=== PATIENT | male | born 1955 | race Caucasian/White ===

== ENCOUNTER 2017-04-15 21:48 | Inpatient (IN) | payer MEDICARE ==
[2017-04-16] MEDS ORDERED: CLINDAMYCIN 600MG PREMIX IVPB 50 ML IVPB ONE ×2 (00:28→00:52)
[2017-04-16] MEDS ORDERED: LEVOFLOXACIN 750 MG IVPB 150 ML IVPB ONE ×2 (00:28→00:52)
[2017-04-16] MEDS ORDERED: DIPHTH,PERTUSS(ACELL),TET 0.5 ML DISP.SYRIN IM ONE (00:29)
--- NOTE | 2017-04-16 00:29 | PDOC ---
History of Present Illness - General Chief Complaint: Injury Stated Complaint: LACERATION Time Seen by Provider: 04/15/17 23:39 - History of Present Illness Initial Comments: 04/16/17 00:27 CHIEF COMPLAINT: laceration/foreign body to R ft HISTORY OF PRESENT ILLNESS: 62 yo M with hx of IDDM and HTN presents to ED s/p laceration/foreign body to foot. Patient reports he stepped on a broken piece of glass that went through his shoe today. He was seen at [facility] and sent to ER for foreign body to base of 1st phalanx and possible avulsion fracture requiring IV abx. No recent travel or sick contacts. PAST MEDICAL HISTORY: Denies past medical history FAMILY HISTORY: Denies SOCIAL HISTORY: Current smoker. Denies alcohol, illicit drug use. SURGICAL HISTORY: Denies ALLERGIES: No known drug allergies REVIEW OF SYSTEMS General/Constitutional: Denies fever or chills. Denies weakness, weight change. HEENT: Denies change in vision. Denies ear pain or discharge. Denies sore throat. Cardiovascular: Denies chest pain or shortness of breath. Respiratory: Denies cough, wheezing, or hemoptysis. Gastrointestinal: Denies nausea, vomiting, diarrhea or constipation. Denies rectal bleeding. Genitourinary: Denies dysuria, frequency, or change in urination. Musculoskeletal: Laceration and pain to R foot. Denies neck or back pain. Skin and breasts: Denies rash or easy bruising. Neurologic: Denies headache, vertigo, loss of consciousness, or loss of sensation. PHYSICAL EXAM General Appearance: Well-appearing, appropriately dressed. No apparent distress. HEENT: EOMI, PERRLA, normal ENT inspection, normal voice, TMs normal, pharynx normal. No conjunctival pallor. No photophobia, scleral icterus. Neck: Supple. Trachea midline. No tenderness, rigidity, carotid bruit, stridor , lymphadenopathy, or thyromegaly. Respiratory/Chest: Lungs CTAB. No shortness of breath, chest tenderness, respiratory distress, accessory muscle use. No crackles, rales, rhonchi, stridor , wheezing, dullness Cardiovascular: RRR. S1, S2. No JVD, murmur, bradycardia, tachycardia. Vascular Pulses: Dorsalis-Pedis (R): 2+, Dorsalis-Pedis (L): 2+ Gastrointestinal/Abdominal: Normal bowel sounds. Abdomen soft, non-distended. No tenderness or rebound tenderness. No organomegaly, pulsatile mass, guarding , hernia, hepatomegaly, splenomegaly. Lymphatic: No adenopathy, tenderness. Musculoskeletal/Extremities: Laceration to plantar aspect of R foot. Foreign body palpated. FROM of all extremities, normal capillary refill. Pelvis Stable. No CVA tenderness. No tenderness to extremities, pedal edema, swelling , erythema or deformity. Integumentary: Appropriate color, dry, warm. No cyanosis, erythema, jaundice or rash Neurologic: software technician II-XII intact. Fully oriented, alert. Appropriate mood/affect. Motor strength 5/5. No appreciable EOM palsy, facial droop or sensory deficit. Past History - Past Medical History Allergies/Adverse Reactions: Allergies Allergy/AdvReac Type Severity Reaction Status Date / Time No Known Allergies Allergy Verified 04/15/17 21:49 Home Medications: Ambulatory Orders Insulin Lispro [Humalog] See Protocol SQ DAILY 04/16/17 Losartan Potassium [Cozaar -] 50 mg PO DAILY 04/16/17 Sitagliptin Phosphate [Januvia] 50 mg PO DAILY 04/16/17 Diabetes: Yes HTN: Yes - Immunization History Immunization Up to Date: No - Psycho/Social/Smoking Cessation Hx Suicidal Ideation: No Smoking History: Current every day smoker Number of Cigarettes Smoked Daily: 10 Information on smoking cessation initiated: No *Physical Exam - Vital Signs Last Vital Signs Temp Pulse Resp BP Pulse Ox 98 F 96 H 18 176/90 96 04/15/17 21:49 04/15/17 21:49 04/15/17 21:49 04/15/17 21:49 04/15/17 21:49 ED Treatment Course - LABORATORY CBC & Chemistry Diagram: 04/16/17 03:25 04/16/17 03:25 - RADIOLOGY Radiology Studies Ordered: Category Date Time Status FOOT-RIGHT [RAD] Stat Radiology 04/16/17 00:26 Ordered Medical Decision Making - Medical Decision Making 04/16/17 03:15 62 yo M with hx of IDDM and HTN presents to ED s/p laceration/foreign body to foot. -levaquin, clindaycin IVPB -X-ray positive for foreign object to base of 1st phalanx with contact to bone. Case discussed with podiatry MD Holman, who recommends patient to be admitted for surgical intervention tomorrow. He will evaluate patient in am. -pre-op labs ordered -patient NPO in am Laboratory Tests 04/16/17 03:25 Creatinine 2.1 H Random Glucose 394 H* 04/16/17 06:31 -IVF -3 units regular insulin SQ Case discussed with attending hospitalist MD Love, who accepts patient for inpatient admission. *DC/Admit/Observation/Transfer Diagnosis at time of Disposition: Foreign bdy foot/toe-inf - Discharge Dispostion Admit: Yes - Referrals Referrals: Shanti Pitt [Primary Care Provider] -
--- NOTE | 2017-04-16 00:31 | PDOC ---
*Physical Exam - Vital Signs Last Vital Signs Temp Pulse Resp BP Pulse Ox 98 F 96 H 18 176/90 96 04/15/17 21:49 04/15/17 21:49 04/15/17 21:49 04/15/17 21:49 04/15/17 21:49 ED Treatment Course - LABORATORY CBC & Chemistry Diagram: 04/18/17 06:30 04/18/17 06:30 Medical Decision Making - Medical Decision Making 04/16/17 00:31 agree with care from JESSE Hicks *DC/Admit/Observation/Transfer Diagnosis at time of Disposition: Foreign bdy foot/toe-inf - Discharge Dispostion Disposition: HOME Condition at time of disposition: Stable - Prescriptions
[2017-04-16 03:32] LABS: BASOPHIL 0.8 % (0-2.0); EOSINOPHIL 4.8 % (0-4.5); MCH 29.7 pg (25.7-33.7); MCHC 33.8 g/dl (32.0-35.9); MEAN CELL VOLUME 87.9 fl (80-96); MEAN PLT VOLUME 7.6 fl (7.5-11.1); NEUTROPHILS 51.4 % (42.8-82.8); PLATELET COUNT 203 K/MM3 (134-434); RDW 13.5 % (11.9-15.9); WHITE BLOOD COUNT 5.9 K/mm3 (4.0-10.0)
[2017-04-16 04:03] LABS: ALBUMIN 3.6 g/dl (3.4-5.0); ANION GAP 9 (8-16); BILIRUBIN,TOTAL 0.2 mg/dL (0.2-1.0); CALCIUM 8.4 mg/dL (8.5-10.1); CO2 24 mmol/L (21-32); CREATININE 2.1 mg/dL (0.7-1.3); SGOT/AST 16 U/L (15-37); SGPT/ALT 26 U/L (12-78); TOT PROT 6.9 g/dl (6.4-8.2)
[2017-04-16 04:04] LABS: ALK PHOS 179 U/L (45-117)
[2017-04-16 04:09] LABS: GLUCOSE,RANDOM 394 mg/dL (74-106)
[2017-04-16] MEDS ORDERED: INSULIN REGULAR HUMAN 100 UNITS/ML *VIAL SQ ONE (05:43)
[2017-04-16] MEDS ORDERED: SODIUM CHLORIDE 0.9% 1000 ML INFUS.BAG IV ONE (05:49)
[2017-04-16] MEDS ORDERED: INSULIN REGULAR HUMAN 100 UNITS/ML *VIAL ONE (05:52)
[2017-04-16] MEDS ORDERED: INSULIN SLIDING SCALE (NOVOLOG) 1 VIAL SQ SCH (07:00)
--- NOTE | 2017-04-16 08:32 | HP ---
CHIEF COMPLAINT: I hurt my foot PCP: Shanti Pitt MD HISTORY OF PRESENT ILLNESS: 62 yo M with h/o IDDM presented to the ED with open wound on the bottom of his R foot. Patient stepped on broken glass bottle while walking back home yesterday. The glass penetrated his shoe and went right into the base of his R great toe. He didn't feel any pain after he went home but his urged him to go to an urgent care center. Patient [facility] and was subsequently told to come in to the ED. Denies severe radiating pain or bleeding , dizziness, R leg focal weakness, fever or chills. ER course was notable for: (1) Received tetanus shot, levaquin, clindamycin, IVF x 2 L (2) Blood glc 394, received 3 regular insulin, 8 novolog (3) Foot x-ray shows foreign body with tissue swelling Recent Travel: Denies PAST MEDICAL HISTORY: CKD, Prostate CA s/p prostatectomy, HTN and IDDM PAST SURGICAL HISTORY: Prostatectomy Social History: Smoking: Current active smoker Alcohol: Denies Drugs: Denies Family History: Non-contributory Allergies No Known Allergies Allergy (Verified 04/15/17 21:49) HOME MEDICATIONS: Home Medications Medication Instructions Recorded Insulin Lispro [Humalog] See Protocol SQ DAILY 04/16/17 Losartan Potassium [Cozaar -] 50 mg PO DAILY 04/16/17 Sitagliptin Phosphate [Januvia] 50 mg PO DAILY 04/16/17 REVIEW OF SYSTEMS CONSTITUTIONAL: Absent: fever, chills, diaphoresis, generalized weakness, malaise, loss of appetite, weight change HEENT: Absent: rhinorrhea, nasal congestion, throat pain, throat swelling, difficulty swallowing, mouth swelling, ear pain, eye pain, visual changes CARDIOVASCULAR: Absent: chest pain, syncope, palpitations, irregular heart rate, lightheadedness , peripheral edema RESPIRATORY: Absent: cough, shortness of breath, dyspnea with exertion, orthopnea, wheezing, stridor, hemoptysis GASTROINTESTINAL: Absent: abdominal pain, abdominal distension, nausea, vomiting, diarrhea, constipation, melena, hematochezia GENITOURINARY: Absent: dysuria, frequency, urgency, hesitancy, hematuria, flank pain, genital pain MUSCULOSKELETAL: Absent: myalgia, arthralgia, joint swelling, back pain, neck pain SKIN: Absent: rash, itching, pallor HEMATOLOGIC/IMMUNOLOGIC: Absent: easy bleeding, easy bruising, lymphadenopathy, frequent infections ENDOCRINE: Absent: unexplained weight gain, unexplained weight loss, heat intolerance, cold intolerance NEUROLOGIC: Absent: headache, focal weakness or paresthesias, dizziness, unsteady gait, seizure, mental status changes, bladder or bowel incontinence PSYCHIATRIC: Absent: anxiety, depression, suicidal or homicidal ideation, hallucinations. PHYSICAL EXAMINATION Last Vital Signs Temp Pulse Resp BP Pulse Ox 98.2 F 75 16 142/82 99 04/16/17 05:58 04/16/17 05:58 04/16/17 05:58 04/16/17 05:58 04/16/17 05:58 GENERAL: AAO x 3, in no acute distress. HEAD: NC, AT EYES: PERRLA, sclera anicteric, conjunctiva clear. No lid lag. EARS, NOSE, THROAT: Poor oral hygiene, oropharynx clear without exudates. Moist mucous membranes. NECK: supple without lymphadenopathy LUNGS: CTAB HEART: RRR, normal S1 and S2 without murmur, rub or gallop. ABDOMEN: Soft, nontender, not distended, normoactive bowel sounds, no guarding, no rebound, no masses. Surgical scars EXTREMITIES: Diminished peripheral pulses bilaterally. No peripheral edema. ~3 cm laceration with purulent yellow to bloody drainage, erythematus and edematous , pain to palpation, callus, onycomycosis. NEUROLOGICAL: Cranial nerves II-XII intact. Normal speech CBCD WBC 5.9 K/mm3 (4.0-10.0) 04/16/17 03:25 RBC 4.37 M/mm3 (4.00-5.60) 04/16/17 03:25 Hgb 13.0 GM/dL (11.7-16.9) 04/16/17 03:25 Hct 38.4 % (35.4-49) 04/16/17 03:25 MCV 87.9 fl (80-96) 04/16/17 03:25 MCHC 33.8 g/dl (32.0-35.9) 04/16/17 03:25 RDW 13.5 % (11.9-15.9) 04/16/17 03:25 Plt Count 203 K/MM3 (134-434) 04/16/17 03:25 MPV 7.6 fl (7.5-11.1) 04/16/17 03:25 CMP Sodium 134 mmol/L (136-145) L 04/16/17 03:25 Potassium 4.9 mmol/L (3.5-5.1) 04/16/17 03:25 Chloride 101 mmol/L (98-107) 04/16/17 03:25 Carbon Dioxide 24 mmol/L (21-32) 04/16/17 03:25 Anion Gap 9 (8-16) 04/16/17 03:25 BUN 41 mg/dL (7-18) H 04/16/17 03:25 Creatinine 2.1 mg/dL (0.7-1.3) H 04/16/17 03:25 Creat Clearance w eGFR 32.06 (>60) 04/16/17 03:25 Calcium 8.4 mg/dL (8.5-10.1) L 04/16/17 03:25 Total Bilirubin 0.2 mg/dL (0.2-1.0) 04/16/17 03:25 AST 16 U/L (15-37) 04/16/17 03:25 ALT 26 U/L (12-78) 04/16/17 03:25 Alkaline Phosphatase 179 U/L (45-117) H 04/16/17 03:25 Total Protein 6.9 g/dl (6.4-8.2) 04/16/17 03:25 Albumin 3.6 g/dl (3.4-5.0) 04/16/17 03:25 IMAGING Foot x-ray on 04/16: foreign body with soft tissue swelling ASSESSMENT/PLAN: 62 yo M with h/o IDDM admitted to med-surg for penetrating trauma to R plantar foot. Penetrating trauma, R plantar foot - Received levaquin, clindamycin, tetanus shot in ED - Adjusted abx to vanco + zosyn - Pain control as needed - PT - Surgery planned for tomorrow IDDM - GBM and NSS HTN - Cont. cozaar CKD, Stage 3B - Baseline in low 2.x - Follows nephrology as outpatient - Cont. to monitor FEN - Received 2L bolus in ED - Lytes normal - NPO tonight for tomorrow's procedure Prophylaxis - DVT: heparin SQ, hold tomorrow morning dose - GI: eating Dispo - Awaiting input from podiatry and ID - Dr. Rodriguez discussed with ED staff and thought podiatry would adequately handle the wound, will re-consult ortho if needed Visit type - Emergency Visit Emergency Visit: Yes ED Registration Date: 04/16/17 Care time: The patient presented to the Emergency Department on the above date and was hospitalized for further evaluation of their emergent condition. - New Patient This patient is new to me today: Yes Date on this admission: 04/16/17 - Critical Care Critical Care patient: No
--- NOTE | 2017-04-16 08:47 | PN ---
Teaching Attending Note Name of Resident: Allen Mendez ATTENDING PHYSICIAN STATEMENT I saw and evaluated the patient. I reviewed the resident's note and discussed the case with the resident. I agree with the resident's findings and plan as documented. SUBJECTIVE: The patient is a 62 year old male with a significant past medical history of HTN , type two diabetes and CKD (unknown baseline) who is being admitted for treatment of laceration of the first toe with foreign body and possible open fracture of the first toe. OBJECTIVE: Vitals noted ASSESSMENT AND PLAN: -Laceration/foreign body He received IV antibiotics and tetanus in the ED Will continue IV antibiotics, using Ceftriaxone for gram negative coverage and adding Vancomycin to cover MRSA Kat void flouroquinolones until open fracture has been excluded given some report of impaired healing ED discussed the case with podiatry Dr. River Landeros podiatry evaluation Will consult ortho as well given potential for open fracture Will consult ID Will add EKG -Elevated creatinine Per , he has a history of CKD, but she is unaware of his baseline creatinine Will call primary/margin analyst (Dr. Pitt) Will repeat after IV hydration -Hyperglycemia without evidence of diabetic emergency He received insulin in the ED Will recheck Will provide SSI See resident note for full details
[2017-04-16] MEDS ORDERED: SODIUM CHLORIDE 1,000 ML IV ONE (09:59)
[2017-04-16] MEDS ORDERED: VANCOMYCIN 1 GRAM (PRE-DOCKED) 250 ML IVPB SCH (10:00)
[2017-04-16] MEDS ORDERED: CEFTRIAXONE 50 ML IVPB SCH (10:00)
[2017-04-16] MEDS ORDERED: LOSARTAN POTASSIUM 50 MG TABLET (FP) PO SCH (12:15)
[2017-04-16] MEDS ORDERED: VANCOMYCIN 1,250 MG in DEXTROSE 5%-WATER - 250 ML IVPB ONE (13:28)
[2017-04-16] MEDS: DEXTROSE 5%-NORMAL SALINE 1,000 ML IV SCH ×2 (13:30→13:52)
--- NOTE | 2017-04-16 13:37 | PN ---
Progress Note (short form) - Note Progress Note: ID consult dictated imp/reccd foreign body (glass) in foot soft tissue infection secondary to foreign body 62 fredy old man with diabetes, stepped on glass yesterday while wearing his sneakers, went to [facility] and was sent to ED due to presence of foreign body in the foot no fevers minimal erythema, currently no drainage noted +soft tissue swelling plan for vancomycin and zosyn- sneaker foot puncture injuries have been associated with Pseudomonas so would treat with vanco/zosyn for podiatry eval to remove foreign body- hopefully cultues will be sent at that time diabetes ckd antibiotics adjusted for renal insufficiency vancomycin trough in am, redose if less then 15 Problem List - Problems (1) Foreign bdy foot/toe-inf Code(s): [id number] - (2) Diabetes Code(s): E11.9 - TYPE 2 DIABETES MELLITUS WITHOUT COMPLICATIONS (3) Renal insufficiency Code(s): N28.9 - DISORDER OF KIDNEY AND URETER, UNSPECIFIED
[2017-04-16] MEDS: INSULIN SLIDING SCALE (NOVOLOG) 1 VIAL SQ SCH ×3 (13:52→21:23)
[2017-04-16] MEDS ORDERED: LOSARTAN POTASSIUM 25 MG TABLET ONE (13:57)
--- NOTE | 2017-04-16 14:19 | EKG ---
Test Reason : Blood Pressure : / mmHG Vent. Rate : 089 BPM Atrial Rate : 089 BPM P-R Int : 150 ms QRS Dur : 098 ms QT Int : 386 ms P-R-T Axes : 053 033 178 degrees QTc Int : 469 ms SINUS RHYTHM WITH PREMATURE ATRIAL COMPLEXES T WAVE ABNORMALITY, CONSIDER LATERAL ISCHEMIA PROLONGED QT ABNORMAL ECG NO PREVIOUS ECGS AVAILABLE Confirmed by ZEKE FUENTES MD ([id number]) on 04/16/2017 2:18:19 PM Referred By: Confirmed By:ZEKE FUENTES MD
--- NOTE | 2017-04-16 14:27 | CONS ---
DATE OF CONSULTATION: DATE OF DICTATION: 04/16/2017 REQUESTED BY: The hospitalist service. HISTORY OF PRESENT ILLNESS: This is a 62-year-old man with a history of diabetes. He stepped on a broken glass bottle yesterday evening. He was wearing sneakers at the time. The glass penetrated his shoe into the base of his right great toe. He went home and his urged him to go to [facility]. He had an x-ray done there and was told to come to the emergency room because he was noted to have a foreign body in his foot. He denies any fevers or chills. Otherwise feels well. In the ER, he received a tetanus shot. He got Levaquin and clindamycin. He got some IV fluids. His blood glucose was elevated at 394. He had an x-ray of his foot that showed a foreign body with soft tissue swelling. Podiatry was consulted and they will come and evaluate him to remove the foreign body. PAST MEDICAL HISTORY: Notable for insulin-dependent diabetes, hypertension, chronic kidney disease. SURGICAL HISTORY: Notable for prostatectomy for prostate cancer. FAMILY HISTORY: Noncontributory. ALLERGIES: He had no known drug allergies. MEDICATIONS AT HOME: Include insulin, losartan, and Januvia. SOCIAL HISTORY: He smokes. There is no history of any other substance use. REVIEW OF SYSTEMS: Otherwise negative. There are no fevers or chills, nausea or vomiting, diarrhea, dysuria, or chest pain. PHYSICAL EXAMINATION:Vital Signs: Temperature is 98.2, he is resting comfortably, pulse is 75, blood pressure 142/82, respiratory rate 16, saturating 99%. HEENT: Normocephalic. His eyes are anicteric. Neck: Supple. Lungs: Clear to auscultation. Heart: Regular rate and rhythm. Abdomen: Soft and nontender. Extremities: Notable for both his feet are warm. He has a laceration on the lower part of his left foot at the base of his left big toe. At this time, there is some dried blood. There is no drainage. There is minimal erythema and it is painful to touch and he has surrounding soft tissue swelling. LABORATORY DATA: His labs are notable for a white count of 5.9, hemoglobin is 13, platelets are 203. BUN is 41 and creatinine is 2.1 with a glucose of 394. ASSESSMENT: In summary, this is a 62-year-old man with diabetes, status post penetrating trauma to the right foot with foreign body in the setting of diabetes and renal insufficiency. RECOMMENDATIONS: Sneaker penetrating injuries have been associated with Pseudomonas in the past, so would treat him with vancomycin and Zosyn at this time adjusted for his renal insufficiency. Hopefully, operative cultures will be sent when Podiatry removes the foreign body which will help guide our treatment. Further recommendations to follow based on his clinical course. A vancomycin level was ordered for the morning. Would redose him if the level is less than 15. ADIA JASMINE M.D. [id number]
[2017-04-16 15:13] LABS: ALBUMIN 3.5 g/dl (3.4-5.0); ANION GAP 10 (8-16); CALCIUM 8.6 mg/dL (8.5-10.1); CO2 26 mmol/L (21-32); CREATININE 1.6 mg/dL (0.7-1.3); GLUCOSE,RANDOM 180 mg/dL (74-106); SGOT/AST 11 U/L (15-37); SGPT/ALT 22 U/L (12-78)
[2017-04-16 15:15] LABS: ALK PHOS 160 U/L (45-117); BILIRUBIN,TOTAL 0.4 mg/dL (0.2-1.0); TOT PROT 6.7 g/dl (6.4-8.2)
[2017-04-16 15:55] VITALS: BMI 27.6
[2017-04-16] MEDS ORDERED: LIDOCAINE 1%/EPI 1:100000 (50 ML MULTI DOSE VIAL) ONE (17:23)
[2017-04-16] MEDS ORDERED: BUPIVACAINE HCL/PF 0.5% (5MG/ML) 10 ML VIAL ONE (17:23)
[2017-04-16] MEDS ORDERED: PIPERACILLIN/TAZOB 3.375 GM/50 ML PRE-DOCKED IVPB SCH (18:00)
--- NOTE | 2017-04-16 18:32 | CONSULT ---
Consult Consult Specialty:: Elio Holman DPM Podiatry Reason for Consultation:: Removal of foreign body from the right hallux. - History of Present Illness Chief Complaint: Foreign body right hallux History of Present Illness: Patient stepped off curb night and stepped onto a broke bottle that punctured his foot through his sneaker. Patient was seen in the emergency room here at [place] last night. I was alerted by ER physician. Patient was given dose of Levaquin and Clindamycin. Patient reports minimal pain at the site because he reportedly has diabetic peripheral neuropathy. - History Source History Provided By: Medical Record - Alcohol/Substance Use Hx Alcohol Use: Yes (social) - Smoking History Smoking history: Current every day smoker Aproximately how many cigarettes per day: 10 Home Medications - Allergies Allergies/Adverse Reactions: Allergies Allergy/AdvReac Type Severity Reaction Status Date / Time No Known Allergies Allergy Verified 04/15/17 21:49 - Home Medications Home Medications: Ambulatory Orders Insulin Lispro [Humalog] See Protocol SQ DAILY 04/16/17 Losartan Potassium [Cozaar -] 50 mg PO DAILY 04/16/17 Sitagliptin Phosphate [Januvia] 50 mg PO DAILY 04/16/17 Physical Exam Vital Signs: Vital Signs Temperature 98.6 F 04/16/17 15:32 Pulse Rate 81 04/16/17 15:32 Respiratory Rate 18 04/16/17 15:32 Blood Pressure 142/89 04/16/17 18:11 O2 Sat by Pulse Oximetry (%) 989 H 04/16/17 18:11 Edema: No (no local edema in the melodie) Peripheral Pulses WNL: No (+1/4 bilateral dp and pt) Wound/Incision: Yes: Other (2.5cm oblique jagged wound present inferior and medial to the right hallux base. No drainage or necrosis present at the site. Skin temp and temp gradient are normal. There is no edema present at the site but mild erythema around the base of the toe.) Labs: CBC, BMP 04/16/17 14:15 Imaging - Results X-ray: Other (I viewed the image taken in the ER. Foreign body measuring approximately 2cm x 3cm identified at the base of the right hallux with no apparent fracture of the bone.) Assessment/Plan Assessment Right hallux base plantar medial laceration with glass foreign body. Note the wound appears not to be infected at this time but the foreign body is contaminated and has passed through a sneaker the patient was wearing. Plan Excision of foreign body in the OR under local anesthesia as soon as possible.
[2017-04-16] MEDS ORDERED: HEPARIN NA (PORCINE) 5,000 UNITS/ML 1ML VIAL SQ SCH (20:00)
[2017-04-16 20:38] LABS: URINE APPEARANCE CLEAR; URINE BILIRUBIN NEGATIVE (NEGATIVE); URINE BLOOD 1+ (NEGATIVE); URINE COLOR STRAW; URINE GLUCOSE (UA) 1+ (NEGATIVE); URINE KETONE NEGATIVE (NEGATIVE); URINE LEUK ESTERASE NEGATIVE (NEGATIVE); URINE NITRITE NEGATIVE (NEGATIVE); URINE PROTEIN NEGATIVE (NEGATIVE); URINE UROBILINOGEN NEGATIVE E.U./dl (0.2-1.0)
[2017-04-16 20:39] LABS: URINE RBC 2 /hpf (0-3)
[2017-04-16] MEDS: HEPARIN NA (PORCINE) 5,000 UNITS/ML 1ML VIAL SQ SCH (21:16)
[2017-04-16] MEDS ORDERED: INSULIN (NOVOLOG) ASPART 100 UNITS/ML 10ML VIAL ONE (21:22)
[2017-04-16 21:43] LABS: URINE CREATININE 47.8 mg/dL (20-370)
[2017-04-17] MEDS: PIPERACILLIN/TAZOB 3.375 GM/50 ML PRE-DOCKED IVPB SCH ×3 (02:38→17:11)
[2017-04-17] MEDS ORDERED: PT OWN MED DRAWER 7, Y5N ONE (05:35)
[2017-04-17] MEDS: INSULIN SLIDING SCALE (NOVOLOG) 1 VIAL SQ SCH ×4 (06:33→21:21)
[2017-04-17] MEDS ORDERED: sitaGLIPtin PHOSPHATE 50 MG TABLET PO SCH (07:00)
[2017-04-17 08:16] LABS: MCHC 34.2 g/dl (32.0-35.9); MEAN CELL VOLUME 87.5 fl (80-96); MEAN PLT VOLUME 7.4 fl (7.5-11.1); PLATELET COUNT 182 K/MM3 (134-434); RDW 13.5 % (11.9-15.9); WHITE BLOOD COUNT 5.7 K/mm3 (4.0-10.0)
[2017-04-17 08:44] LABS: ANION GAP 9 (8-16); CALCIUM 8.7 mg/dL (8.5-10.1); CO2 25 mmol/L (21-32); CREATININE 1.7 mg/dL (0.7-1.3); GLUCOSE,RANDOM 197 mg/dL (74-106)
[2017-04-17] MEDS: LOSARTAN POTASSIUM 50 MG TABLET (FP) PO SCH (09:44)
--- NOTE | 2017-04-17 10:46 | OP ---
DATE OF OPERATION: 04/16/2017 SURGEON: Elio Holman DPM PREOPERATIVE DIAGNOSIS: Foreign body of the right hallux. POSTOPERATIVE DIAGNOSIS: Foreign body of the right hallux. PROCEDURE: Removal of glass foreign body from the right hallux base. DESCRIPTION OF PROCEDURE: Under local anesthesia and a surgical scrub with Betadine scrub and solution x2, the patient was draped using sterile technique. A fluoroscopy unit was present in the room and positioned into correct position for imaging following sterile draping. Inspection of the right foot showed a jagged laceration on the plantar medial aspect of the right hallux. The laceration extended into deep tissue, and prior radiographic imaging showed a large foreign body wedged against the right hallux proximal phalanx. Using a No. 15 blade, the skin edges of the jagged laceration were trimmed removing approximately 1-2 mm of the tissue. Using a hemostat, the wound was probed, and the foreign body was identified and then removed from the wound. Inspection of the foreign body showed a thick glass shard measuring approximately 2.5 cm long and 2 cm wide. The glass was very thick and showed no sign of splintering. Following removal of the glass shard, a fluoroscopic image was taken in the lateral orientation to check for any residual signs of foreign body. None were identified. The wound was then copiously irrigated with 500 mL of sterile saline, and then, a Xeroform gauze packing was applied to the wound. Packing was applied approximately 3 cm in the plantar to dorsal direction and 2 cm in the proximal to distal direction and 2 cm in the dorsal to plantar direction. Following insertion of the Xeroform gauze packing, a dry sterile dressing was applied to the right foot. The patient tolerated the surgical procedure well and left the operating room stable, alert, awake, and in no pain. Swab cultures were taken of the foreign body prior to passing it off to Pathology and swab cultures were taken of the medial aspects of the proximal phalanx because the foreign body appeared to have lodged itself between the joint capsule and periosteum and the bone. No sign of bone fracture was noted, and inspection of the bone through the wound seemed to show cortical bone uninterrupted. GEETA WHITE/[id number]
[2017-04-17] MEDS ORDERED: INSULIN (NOVOLOG) ASPART 100 UNITS/ML 10ML VIAL ONE ×3 (11:12→21:15)
--- NOTE | 2017-04-17 14:44 | PN ---
Physical Exam: SUBJECTIVE: Patient seen and examined at bedside. Feels well. Denies pain. OBJECTIVE: Vital Signs Period Temp Pulse Resp BP Sys/Fink Pulse Ox Last 24 Hr 98.0 F-98.6 F 79-86 16-20 137-153/74-89 97-989 GENERAL: The patient is awake, alert, and fully oriented, in no acute distress. HEAD: Normal with no signs of trauma. EYES: PERRL, extraocular movements intact, sclera anicteric, conjunctiva clear. No ptosis. LUNGS: Breath sounds equal, clear to auscultation bilaterally, no wheezes, no crackles, no accessory muscle use. HEART: Regular rate and rhythm, S1, S2 without murmur, rub or gallop. ABDOMEN: Soft, nontender, nondistended, normoactive bowel sounds, no guarding, no rebound, no hepatosplenomegaly, no masses. EXTREMITIES: Right foot dressing clean and dry, 2+ pulses, warm, well-perfused, no edema. NEUROLOGICAL: Cranial nerves II through XII grossly intact. Normal speech, gait not observed. Laboratory Results - last 24 hr 04/16/17 04/16/17 04/16/17 13:34 14:15 14:15 WBC RBC Hgb Hct MCV MCHC RDW Plt Count MPV Sodium 142 Potassium 4.9 Chloride 106 Carbon Dioxide 26 Anion Gap 10 BUN 32 H D Creatinine 1.6 H D Creat Clearance w eGFR 43.87 POC Glucometer [phone] Random Glucose 180 H D Hemoglobin A1c % 10.5 H Calcium 8.6 Total Bilirubin 0.4 D AST 11 L D ALT 22 Alkaline Phosphatase 160 H Total Protein 6.7 Albumin 3.5 Urine Color Urine Appearance Urine pH Ur Specific [place] Urine Protein Urine Glucose (UA) Urine Ketones Urine Blood Urine Nitrite Urine Bilirubin Urine Urobilinogen Ur Leukocyte Esterase Urine RBC Urine WBC Ur Random Sodium Ur Random Potassium Ur Random Chloride Urine Creatinine Vancomycin Pre-Dose 04/16/17 04/16/17 04/16/17 20:00 20:00 21:20 WBC RBC Hgb Hct MCV MCHC RDW Plt Count MPV Sodium Potassium Chloride Carbon Dioxide Anion Gap BUN Creatinine Creat Clearance w eGFR POC Glucometer 336 Random Glucose Hemoglobin A1c % Calcium Total Bilirubin AST ALT Alkaline Phosphatase Total Protein Albumin Urine Color Straw Urine Appearance Clear Urine pH 5.0 Ur Specific [place] 1.010 Urine Protein Negative Urine Glucose (UA) 1+ H Urine Ketones Negative Urine Blood 1+ H Urine Nitrite Negative Urine Bilirubin Negative Urine Urobilinogen Negative Ur Leukocyte Esterase Negative Urine RBC 2 Urine WBC None Ur Random Sodium 103 Ur Random Potassium 23.5 Ur Random Chloride 113 Urine Creatinine 47.8 Vancomycin Pre-Dose 04/17/17 04/17/17 04/17/17 05:44 06:40 06:40 WBC 5.7 RBC 4.32 Hgb 12.9 Hct 37.8 MCV 87.5 MCHC 34.2 RDW 13.5 Plt Count 182 MPV 7.4 L Sodium 142 Potassium 4.6 Chloride 108 H Carbon Dioxide 25 Anion Gap 9 BUN 25 H D Creatinine 1.7 H Creat Clearance w eGFR POC Glucometer 235 Random Glucose 197 H Hemoglobin A1c % Calcium 8.7 Total Bilirubin AST ALT Alkaline Phosphatase Total Protein Albumin Urine Color Urine Appearance Urine pH Ur Specific [place] Urine Protein Urine Glucose (UA) Urine Ketones Urine Blood Urine Nitrite Urine Bilirubin Urine Urobilinogen Ur Leukocyte Esterase Urine RBC Urine WBC Ur Random Sodium Ur Random Potassium Ur Random Chloride Urine Creatinine Vancomycin Pre-Dose 04/17/17 04/17/17 11:10 12:45 WBC RBC Hgb Hct MCV MCHC RDW Plt Count MPV Sodium Potassium Chloride Carbon Dioxide Anion Gap BUN Creatinine Creat Clearance w eGFR POC Glucometer 284 Random Glucose Hemoglobin A1c % Calcium Total Bilirubin AST ALT Alkaline Phosphatase Total Protein Albumin Urine Color Urine Appearance Urine pH Ur Specific [place] Urine Protein Urine Glucose (UA) Urine Ketones Urine Blood Urine Nitrite Urine Bilirubin Urine Urobilinogen Ur Leukocyte Esterase Urine RBC Urine WBC Ur Random Sodium Ur Random Potassium Ur Random Chloride Urine Creatinine Vancomycin Pre-Dose 7.073 Active Medications Generic Name Dose Route Start Last Admin Trade Name Freq PRN Reason Stop Dose Admin Heparin Sodium (Porcine) 5,000 unit 04/16/17 22:00 04/16/17 21:16 Heparin - SQ Not Given BID JUAN Insulin Aspart 1 vial 04/16/17 22:00 04/17/17 11:19 Novolog Vial Sliding Scale - SQ 6 units ACHS JUAN Administration Protocol Losartan Potassium 50 mg 04/17/17 10:00 04/17/17 09:44 Cozaar - PO 50 mg DAILY JUAN Administration Piperacillin Sod/Tazobactam Sod 3.375 gm 04/17/17 02:00 04/17/17 09:44 Zosyn 3.375gm Ivpb (Pre-Docked) IVPB 3.375 gm Q8H-IV JUAN Administration Protocol Sitagliptin Phosphate 50 mg 04/17/17 07:00 04/17/17 06:33 Januvia - PO 50 mg DAILY@0700 JUAN Administration ASSESSMENT/PLAN 62 year-old male with a significant PMH of HTN, NIDDM, and CKD (unknown baseline ) admitted for treatment of laceration of the first toe with foreign body. Glass foreign body of the right hallux s/p surgical removal 04/16 --tetanus given in ED --cultures pending --continue Vanc and Zosyn --podiatry and ID following NIDDM --Novolog sliding scale coverage Hypertension -continue losartan Chronic kidney disease --Cr 2.1 on admission, trending down after IV fluids, now 1.7 --continue to monitor F/E/N Fluids: PO intake adequate Electrolytes: replete as indicated Nutrition: diabetic, low sodium DVT prophylaxis: subq heparin, oob, ambulation Dispo: continues to require inpatient care. Full code. Visit type - Emergency Visit Emergency Visit: Yes ED Registration Date: 04/16/17 Care time: The patient presented to the Emergency Department on the above date and was hospitalized for further evaluation of their emergent condition. - New Patient This patient is new to me today: Yes Date on this admission: 04/17/17 - Critical Care Critical Care patient: No
[2017-04-17] MEDS: HEPARIN NA (PORCINE) 5,000 UNITS/ML 1ML VIAL SQ SCH (21:20)
[2017-04-18] MEDS: PIPERACILLIN/TAZOB 3.375 GM/50 ML PRE-DOCKED IVPB SCH ×2 (02:52→09:43)
[2017-04-18] MEDS: INSULIN SLIDING SCALE (NOVOLOG) 1 VIAL SQ SCH (06:20)
--- NOTE | 2017-04-18 08:21 | PN ---
Teaching Attending Note Name of Resident: Donya Thomas ATTENDING PHYSICIAN STATEMENT I saw and evaluated the patient. I reviewed the resident's note and discussed the case with the resident. I agree with the resident's findings and plan as documented. SUBJECTIVE: Patient is feeling better with no acute distress. no fever or pain or chills. Wants to go home. is at bedside. OBJECTIVE: Vital Signs Temperature 99.5 F 04/18/17 06:00 Pulse Rate 89 04/18/17 06:00 Respiratory Rate 20 04/18/17 06:00 Blood Pressure 153/94 04/18/17 06:00 O2 Sat by Pulse Oximetry (%) 97 04/17/17 09:00 CBCD WBC 5.7 K/mm3 (4.0-10.0) 04/17/17 06:40 RBC 4.32 M/mm3 (4.00-5.60) 04/17/17 06:40 Hgb 12.9 GM/dL (11.7-16.9) 04/17/17 06:40 Hct 37.8 % (35.4-49) 04/17/17 06:40 MCV 87.5 fl (80-96) 04/17/17 06:40 MCHC 34.2 g/dl (32.0-35.9) 04/17/17 06:40 RDW 13.5 % (11.9-15.9) 04/17/17 06:40 Plt Count 182 K/MM3 (134-434) 04/17/17 06:40 MPV 7.4 fl (7.5-11.1) L 04/17/17 06:40 CMP Sodium 142 mmol/L (136-145) 04/17/17 06:40 Potassium 4.6 mmol/L (3.5-5.1) 04/17/17 06:40 Chloride 108 mmol/L (98-107) H 04/17/17 06:40 Carbon Dioxide 25 mmol/L (21-32) 04/17/17 06:40 Anion Gap 9 (8-16) 04/17/17 06:40 BUN 25 mg/dL (7-18) H D 04/17/17 06:40 Creatinine 1.7 mg/dL (0.7-1.3) H 04/17/17 06:40 Creat Clearance w eGFR 43.87 (>60) 04/16/17 14:15 Random Glucose 197 mg/dL (74-106) H 04/17/17 06:40 Calcium 8.7 mg/dL (8.5-10.1) 04/17/17 06:40 Total Bilirubin 0.4 mg/dL (0.2-1.0) D 04/16/17 14:15 AST 11 U/L (15-37) L D 04/16/17 14:15 ALT 22 U/L (12-78) 04/16/17 14:15 Alkaline Phosphatase 160 U/L (45-117) H 04/16/17 14:15 Total Protein 6.7 g/dl (6.4-8.2) 04/16/17 14:15 Albumin 3.5 g/dl (3.4-5.0) 04/16/17 14:15 Current Medications Generic Name Dose Route Start Last Admin Trade Name Freq PRN Reason Stop Dose Admin Heparin Sodium (Porcine) 5,000 unit 04/16/17 22:00 04/17/17 21:20 Heparin - SQ 5,000 unit BID JUAN Administration Insulin Aspart 1 vial 04/17/17 16:30 04/18/17 06:20 Novolog Vial Sliding Scale - SQ 6 units ACHS JUAN Administration Protocol Losartan Potassium 50 mg 04/17/17 10:00 04/17/17 09:44 Cozaar - PO 50 mg DAILY JUAN Administration Piperacillin Sod/Tazobactam Sod 3.375 gm 04/17/17 02:00 04/18/17 02:52 Zosyn 3.375gm Ivpb (Pre-Docked) IVPB 3.375 gm Q8H-IV JUAN Administration Protocol Home Medications Medication Instructions Recorded Insulin Lispro [Humalog] See Protocol SQ DAILY 04/16/17 Losartan Potassium [Cozaar -] 50 mg PO DAILY 04/16/17 Sitagliptin Phosphate [Januvia] 50 mg PO DAILY 04/16/17 Extremity: Right foot , unwrapped the gauze, wound is clean, no discharge. Microbiology 04/16/17 18:01 Foot - Left Achilles Gram Stain - Final 04/16/17 18:02 Foot - Right Sole Gram Stain - Final ASSESSMENT AND PLAN: 62 year-old male with a significant PMH of HTN, NIDDM, and CKD (unknown baseline ) admitted for treatment of laceration of the first toe with foreign body. # POD #2 s/p surgical removal of Foreign body foot glass.( 04/16) by ; flight manager : tetanus given in ED, s/p Vancomycin/Zosyn. will discharge the patient home on Augmentin 875mg po BId x 7 days. Follow with by am #T2DM on Humolg and Januvia continue # Hypertension on losartan, follow up with ip litigation paralegal as an outpatient for further w/u , patient has his own ip litigation paralegal as per who is at bedside. follow up with nephro.in a week time. #Chronic kidney disease Cr 2.1 on admission, trending down after IV fluids, now 1.7 DVT prophylaxis: subq heparin, oob, ambulation
[2017-04-18 08:33] LABS: BASOPHIL 0.5 % (0-2.0); EOSINOPHIL 1.8 % (0-4.5); MCH 30.3 pg (25.7-33.7); MCHC 34.7 g/dl (32.0-35.9); MEAN CELL VOLUME 87.2 fl (80-96); MEAN PLT VOLUME 7.7 fl (7.5-11.1); NEUTROPHILS 57.5 % (42.8-82.8); PLATELET COUNT 189 K/MM3 (134-434); RDW 13.4 % (11.9-15.9); WHITE BLOOD COUNT 7.1 K/mm3 (4.0-10.0)
[2017-04-18 08:49] LABS: ALBUMIN 3.3 g/dl (3.4-5.0); ALK PHOS 163 U/L (45-117); ANION GAP 7 (8-16); BILIRUBIN,TOTAL 0.5 mg/dL (0.2-1.0); CALCIUM 8.6 mg/dL (8.5-10.1); CO2 27 mmol/L (21-32); CREATININE 1.9 mg/dL (0.7-1.3); GLUCOSE,RANDOM 214 mg/dL (74-106); MAGNESIUM 1.8 mg/dL (1.8-2.4); SGOT/AST 13 U/L (15-37); SGPT/ALT 21 U/L (12-78); TOT PROT 6.9 g/dl (6.4-8.2)
--- NOTE | 2017-04-18 09:30 | PN ---
Progress Note, Physician Chief Complaint: KATE Simmons Says he wants to go home - Current Medication List Current Medications: Active Medications Heparin Sodium (Porcine) (Heparin -) 5,000 unit SQ BID [facility] Last Admin: 04/17/17 21:20 Dose: 5,000 unit Insulin Aspart (Novolog Vial Sliding Scale -) 1 vial SQ ACHS JUAN PRN Reason: Protocol Last Admin: 04/18/17 06:20 Dose: 6 units Losartan Potassium (Cozaar -) 50 mg PO DAILY JUAN Last Admin: 04/17/17 09:44 Dose: 50 mg Piperacillin Sod/Tazobactam Sod (Zosyn 3.375gm Ivpb (Pre-Docked)) 3.375 gm IVPB Q8H-IV JUAN PRN Reason: Protocol Last Admin: 04/18/17 02:52 Dose: 3.375 gm - Objective Vital Signs: Vital Signs Temperature 99.5 F 04/18/17 06:00 Pulse Rate 89 04/18/17 06:00 Respiratory Rate 20 04/18/17 06:00 Blood Pressure 153/94 04/18/17 06:00 O2 Sat by Pulse Oximetry (%) 97 04/17/17 09:00 Extremities: Yes: Other (Right foot surgical dressing) Labs: CBC, BMP 04/18/17 06:30 04/18/17 06:30 INR, PTT INR 1.00 (0.82-1.09) 04/16/17 03:25 Assessment/Plan Microbiology 04/16/17 18:02 Foot - Right Sole Gram Stain - Final 04/16/17 18:01 Foot - Left Achilles Gram Stain - Final Laboratory Tests 04/18/17 06:30 WBC 7.1 Hgb 13.1 Plt Count 189 Assessment S/P removal of foreign body foot glass 04/16 Vancomycin Zosyn/ Diabetes Nothing growing on culture Consider discharge on Augmentin 7 days Podiatry follow up Geoff CARRILLO
[2017-04-18] MEDS: LOSARTAN POTASSIUM 50 MG TABLET (FP) PO SCH (09:43)
[2017-04-18] MEDS: HEPARIN NA (PORCINE) 5,000 UNITS/ML 1ML VIAL SQ SCH (09:43)
--- NOTE | 2017-04-18 11:24 | PN ---
Physical Exam: SUBJECTIVE: Patient seen and examined by me at bedside. No overnight events noted. Patient wants to leave today. Otherwise, patient denies fever, chills, nausea, vomiting, abdominal pain, chest pain, palpitations, shortness of breath , headaches. OBJECTIVE: Vital Signs Period Temp Pulse Resp BP Sys/Fink Pulse Ox Last 24 Hr 98.4 F-99.5 F 79-89 17-20 147-153/81-94 GENERAL: The patient is awake, alert, and fully oriented, in no acute distress. LUNGS: Breath sounds equal, clear to auscultation bilaterally, no wheezes, no crackles, no accessory muscle use. HEART: Regular rate and rhythm, normal S1 and S2, without murmur, rub or gallop. ABDOMEN: Soft, nontender, nondistended, normoactive bowel sounds, no guarding. EXTREMITIES: Right foot dressing c/d/i. No peripheral edema. NEUROLOGICAL: Normal speech, gait not observed. Laboratory Results - last 24 hr 04/17/17 04/17/17 04/17/17 11:10 12:45 16:49 WBC RBC Hgb Hct MCV MCHC RDW Plt Count MPV Neutrophils % Lymphocytes % Monocytes % Eosinophils % Basophils % Sodium Potassium Chloride Carbon Dioxide Anion Gap BUN Creatinine Creat Clearance w eGFR POC Glucometer 284 314 Random Glucose Calcium Magnesium Total Bilirubin AST ALT Alkaline Phosphatase Total Protein Albumin Vancomycin Pre-Dose 7.073 04/17/17 04/18/17 04/18/17 21:20 06:17 06:30 WBC 7.1 RBC 4.33 Hgb 13.1 Hct 37.7 MCV 87.2 MCHC 34.7 RDW 13.4 Plt Count 189 MPV 7.7 Neutrophils % 57.5 Lymphocytes % 25.6 Monocytes % 14.6 H Eosinophils % 1.8 Basophils % 0.5 Sodium Potassium Chloride Carbon Dioxide Anion Gap BUN Creatinine Creat Clearance w eGFR POC Glucometer 246 290 Random Glucose Calcium Magnesium Total Bilirubin AST ALT Alkaline Phosphatase Total Protein Albumin Vancomycin Pre-Dose 04/18/17 06:30 WBC RBC Hgb Hct MCV MCHC RDW Plt Count MPV Neutrophils % Lymphocytes % Monocytes % Eosinophils % Basophils % Sodium 139 Potassium 4.6 Chloride 105 Carbon Dioxide 27 Anion Gap 7 L BUN 25 H Creatinine 1.9 H Creat Clearance w eGFR 35.98 POC Glucometer Random Glucose 214 H Calcium 8.6 Magnesium 1.8 Total Bilirubin 0.5 D AST 13 L ALT 21 Alkaline Phosphatase 163 H Total Protein 6.9 Albumin 3.3 L Vancomycin Pre-Dose Active Medications Generic Name Dose Route Start Last Admin Trade Name Justice PRN Reason Stop Dose Admin Amlodipine Besylate 5 mg 04/18/17 11:16 Norvasc - PO 04/18/17 11:17 ONCE ONE Heparin Sodium (Porcine) 5,000 unit 04/16/17 22:00 04/18/17 09:43 Heparin - SQ 5,000 unit BID JUAN Administration Insulin Aspart 1 vial 04/17/17 16:30 04/18/17 06:20 Novolog Vial Sliding Scale - SQ 6 units ACHS JUAN Administration Protocol Losartan Potassium 50 mg 04/17/17 10:00 04/18/17 09:43 Cozaar - PO 50 mg DAILY JUAN Administration Piperacillin Sod/Tazobactam Sod 3.375 gm 04/17/17 02:00 04/18/17 09:43 Zosyn 3.375gm Ivpb (Pre-Docked) IVPB 3.375 gm Q8H-IV JUAN Administration Protocol IMAGING Foot x-ray on 04/16: foreign body with soft tissue swelling ASSESSMENT/PLAN: 62 yo M with h/o IDDM admitted to med-surg for penetrating trauma to R plantar foot. Penetrating trauma, R plantar foot - S/P surgical removal 04/16 - Tetanus shot given in ED - Continue Zosyn 3.375mg day #3 - Will discharge on Augmentin 875md BID for 7 days. - Wound cultures NGTD - Pain control as needed - PT IDDM - GBM and NSS HTN - Cont. cozaar 50mg daily - Added Norvasc 5mg today CKD, Stage 3B - Baseline in low 2.x - Follows nephrology as outpatient - Cont. to monitor FEN - On no fluids - Lytes normal - Diabetic diet Prophylaxis - DVT: heparin SQ - GI: eating Disposition -Will discharge today on on PO antibiotics Augmentin 875mg BID daily.
[2017-04-18] MEDS ORDERED: amLODIPine BESYLATE 5 MG TABLET (FP) PO ONE (11:45)
--- NOTE | 2017-04-18 12:00 | DS ---
Physical Exam: SUBJECTIVE: Patient seen and examined by me at bedside. No overnight events noted. Patient wants to leave today. Otherwise, patient denies fever, chills, nausea, vomiting, abdominal pain, chest pain, palpitations, shortness of breath , headaches. OBJECTIVE: Vital Signs Period Temp Pulse Resp BP Sys/Fink Pulse Ox Last 24 Hr 98.4 F-99.5 F 79-89 17-20 147-153/81-94 PHYSICAL EXAM GENERAL: The patient is awake, alert, and fully oriented, in no acute distress. LUNGS: Breath sounds equal, clear to auscultation bilaterally, no wheezes, no crackles, no accessory muscle use. HEART: Regular rate and rhythm, normal S1 and S2, without murmur, rub or gallop. ABDOMEN: Soft, nontender, nondistended, normoactive bowel sounds, no guarding. EXTREMITIES: Right foot dressing c/d/i. No peripheral edema. NEUROLOGICAL: Normal speech, gait not observed. LABS Laboratory Results - last 24 hr 04/17/17 04/17/17 04/17/17 12:45 16:49 21:20 WBC RBC Hgb Hct MCV MCHC RDW Plt Count MPV Neutrophils % Lymphocytes % Monocytes % Eosinophils % Basophils % Sodium Potassium Chloride Carbon Dioxide Anion Gap BUN Creatinine Creat Clearance w eGFR POC Glucometer 314 246 Random Glucose Calcium Magnesium Total Bilirubin AST ALT Alkaline Phosphatase Total Protein Albumin Vancomycin Pre-Dose 7.073 04/18/17 04/18/17 04/18/17 06:17 06:30 06:30 WBC 7.1 RBC 4.33 Hgb 13.1 Hct 37.7 MCV 87.2 MCHC 34.7 RDW 13.4 Plt Count 189 MPV 7.7 Neutrophils % 57.5 Lymphocytes % 25.6 Monocytes % 14.6 H Eosinophils % 1.8 Basophils % 0.5 Sodium 139 Potassium 4.6 Chloride 105 Carbon Dioxide 27 Anion Gap 7 L BUN 25 H Creatinine 1.9 H Creat Clearance w eGFR 35.98 POC Glucometer 290 Random Glucose 214 H Calcium 8.6 Magnesium 1.8 Total Bilirubin 0.5 D AST 13 L ALT 21 Alkaline Phosphatase 163 H Total Protein 6.9 Albumin 3.3 L Vancomycin Pre-Dose IMAGING Foot x-ray (04/16/17 @00:26): foreign body with soft tissue swelling Foot X-ray (04/16/17 @18:38): Since a prior study of earlier the day, a radiopaque foreign body of within the plantar surface of the distal foot has been surgically removed. No residual foreign body is identified. Soft tissue swelling is seen at the surgical site. HOSPITAL COURSE: Patient is a 62 year old male with a PMHx of IDDMII and HTN who presents for s/ p penetrating trauma to the right hallux with piece of glass. Patient was sent to the OR for surgical excision and removal by Podiatry on 04/16/17 with no complications. Patient was given tetanus shot and placed on prophylactic IV antibiotics with Zosyn. Wound cultures are negative growth to date and patient remains afebrile with no leukocytosis. Patient advised to follow up with podiatry tomorrow (04/19/17) for continuous wound care. He was prescribed Augmentin for a total of one week and was sent over to the pharmacy for mixing picker tender. Patient verbalized understanding. Patient was also found to have STEVEN and was given fluids. According to patient and , he has a history of elevated creatinine and follows a live truck technician in [facility]. Patient's creatinine improved from 2.1 and down to 1.6 at one point. Patient advised to follow up with his live truck technician within a week and to stay very hydrated. Patient stable for discharge and will be taken home by and daughter. Date of Admission:04/16/17 Date of Discharge: 04/18/17 Minutes to complete discharge: 45 Discharge Summary Reason For Visit: FOREIGN BODY IN FOOT,TOE INF Current Active Problems Diabetes (Acute) Foreign bdy foot/toe-inf (Acute) Renal insufficiency (Acute) Condition: Stable - Instructions Diet, Activity, Other Instructions: -You were admitted due to a foreign body on your toe. You had it removed in the operating room. -You will be prescribed antibiotics for prophylaxis to avoid any serious skin infections. Please pick it up from the pharmacy ([facility]) -You will need to follow up with the Psychology Teacher (Foot doctor) tomorrow (04/19/17 ) so he can follow up and monitor it -You were also found to have elevated kidney function. Fluids were given to you and your kidney function improved. You will need to follow up with your live truck technician (kidney doctor) within two weeks. Please stay hydrated as this improves your kidney function. -Please follow up with your primary medical doctor within one week to follow up and adjust any further medications. -Continue Diabetic diet and regular daily activities -If you have any worsening symptoms, please return to the emergency department. Referrals: Elio Holman MD [Staff Physician] - 04/19/17 Nimco Omalley MD [Staff Physician] - 2 Weeks Shanti Pitt [Primary Care Provider] - 1 Week Disposition: HOME - Home Medications Comprehensive Discharge Medication List: Ambulatory Orders Insulin Lispro [Humalog] See Protocol SQ DAILY 04/16/17 Losartan Potassium [Cozaar -] 50 mg PO DAILY 04/16/17 Sitagliptin Phosphate [Januvia] 50 mg PO DAILY 04/16/17 Amox-Tr/K Cl [Augmentin - 875Mg Tablet] 1 tab PO BID #14 tablet 04/18/17 This patient is new to me today: Yes Date on this admission: 04/18/17 Emergency Visit: Yes ED Registration Date: 04/16/17 Care time: The patient presented to the Emergency Department on the above date and was hospitalized for further evaluation of their emergent condition. Critical Care patient: No - Discharge Referral Referred to [facility] Med P.C.: No
[2017-04-18 12:31] VITALS: TEMP 98.4
[2017-04-18 12:32] VITALS: BP 134/82; PULSE 89
--- NOTE | 2017-04-20 09:56 | PATH ---
Surgical Pathology Report Patient Name: VICTORIA SHELDON Med. Rec. #: [id number] /Age/Gender: 1955 (Age: 62) / M Account: [id number] Location: [address] [place] [address]/[facility] Taken: 04/16/2017 Received: 04/19/2017 Reported: 04/20/2017 Physicians: Elio Holman M.D. Specimen(s) Received FOREIGN BODY RIGHT FOOT Clinical History Foreign body on right foot Final Diagnosis FOREIGN BODY, RIGHT FOOT, REMOVAL: FOREIGN-BODY CONSISTENT WITH PORTION OF GLASS (GROSS ONLY). Electronically Signed Jose Richardson M.D. Gross Description Received fresh labeled "foreign body from right foot," is a 2.6 x 1.2 x 0.2 cm irregular portion of clear glass. No soft tissue is present. No sections are submitted, gross only. /04/19/2017 saudi/04/19/2017
== END 2017-04-18 13:23 | disposition home or self-care (01) | DRG 384 ==
LOC: JER 21:48 → JERBED 04-16 06:31 → J6S 04-16 14:13
PROVIDERS: ADMIT Internal Medicine; ATTEND Internal Medicine
PROC: 0JCQ0ZZ Extirpation of Matter from Right Foot Subcutaneous Tissue and Fascia, Open Approach (ICD-10-PCS; principal; 2017-04-16 17:00)
DX: S91.321A Laceration with foreign body, right foot, initial encounter (principal); W25.XXXA Contact with sharp glass, initial encounter; Y93.9 Activity, unspecified; Y92.89 Other specified places as the place of occurrence of the external cause; Y99.9 Unspecified external cause status; E11.9 Type 2 diabetes mellitus without complications; Z79.4 Long term (current) use of insulin; N17.9 Acute kidney failure, unspecified; I12.9 Hypertensive chronic kidney disease with stage 1 through stage 4 chronic kidney disease, or unspecified chronic kidney disease; F17.210 Nicotine dependence, cigarettes, uncomplicated; N18.3 Chronic kidney disease, stage 3 (moderate)
CPT/HCPCS: 36415; 73630-TC-RT; 80048; 80053; 81003; 81015; 82436; 82570; 83036; 83735; 84133; 84300; 85025; 85027; 85610; 86850; 86900; 86901; 87070; 87205; 88300-TC; 90715; 93005; 93010; 99284-25; G0480; J1644